=== PATIENT | female | born 1955 | race Caucasian/White ===

== ENCOUNTER 2022-05-08 15:30 | Emergency (ER) | payer MEDICARE, BC ==
[~2022-05-08] VITALS: Ht 160 cm; Wt 90.7 kg
--- NOTE | 2022-05-08 15:51 | NUR ---
assisted to bed, hooked to monitor. awaiting for MD woodruff.
[2022-05-08] MEDS ORDERED: DIPH50CA4 PO (16:26)
[2022-05-08] MEDS ORDERED: PRED50TA PO (16:26)
[2022-05-08] MEDS ORDERED: FAMO-131 PO (16:26)
[2022-05-08] MEDS ORDERED: diphenhydrAMINE HCL 50 MG CAPSULE ONE (16:29)
[2022-05-08] MEDS ORDERED: predniSONE 20 MG TABLET ONE (16:29)
[2022-05-08] MEDS ORDERED: FAMOTIDINE (20 MG) 20 MG TABLET ONE ×2 (16:30→16:38)
--- NOTE | 2022-05-08 16:30 | NUR ---
medicated as ordered
[2022-05-08] MEDS: predniSONE 10 MG TABLET PO ONE (16:41)
[2022-05-08] MEDS: FAMOTIDINE (20 MG) 20 MG TABLET PO ONE (16:41)
[2022-05-08] MEDS: diphenhydrAMINE HCL 50 MG CAPSULE PO ONE (16:41)
[2022-05-08 16:42] VITALS: BP 147/88
--- NOTE | 2022-05-08 16:42 | NUR ---
Patient discharged to home in stable condition. Written and verbal after care instructions given. Patient verbalizes understanding of instruction.
== END 2022-05-08 16:45 | disposition home or self-care (01) ==
LOC: ER 15:30
DX: T78.3XXA Angioneurotic edema, initial encounter (principal); I10 Essential (primary) hypertension; E78.00 Pure hypercholesterolemia, unspecified; Z60.2 Problems related to living alone; Z79.899 Other long term (current) drug therapy
CPT/HCPCS: 99284; Q0163; J7512